=== PATIENT | female | born 1980 | race Caucasian/White ===

== ENCOUNTER 2018-07-29 13:41 | Outpatient (CLI) | payer OTHER ==
[~2018-07-29 13:41] MED LIST: Gadobenate Dimeglumine 529 MG/1 ML (20ML VIAL) ONE
--- NOTE | 2018-07-29 19:06 | MRI ---
MRI RIGHT UPPER EXTREMITY WITH AND WITHOUT CONTRAST: Date: 07/29/18 HISTORY: S14.2XXA injury brachial plexus. COMPARISON: None. FINDINGS: There is no significant muscle atrophy. There is no significant marrow edema. No evidence of acute in jury. No abnormal enhancement along the brachial plexus. No evidence for cervical nerve root avulsion. IMPRESSION: Normal examination of brachial plexus. POS: [facility]
== END 2018-07-29 13:42 | disposition home or self-care (01) ==
LOC: BICMRI 13:41
PROVIDERS: ATTEND Specialist
DX: S14.3XXA Injury of brachial plexus, initial encounter (principal)
CPT/HCPCS: A9579

== ENCOUNTER 2022-11-26 12:16 | Outpatient (CLI) | payer OTHER | END 2022-11-26 12:17 | disposition home or self-care (01) | LOC: SCSMRI 12:16 | PROVIDERS: ATTEND Podiatrist Foot & Ankle Surgery | DX: M21.6X1 Other acquired deformities of right foot (principal); M62.89 Other specified disorders of muscle ==